=== PATIENT | female | born 1990 | race Caucasian/White ===

== ENCOUNTER 2017-07-01 15:40 | Emergency (ER) | payer BC ==
[2017-07-01] MEDS ORDERED: SODIUM CHLORIDE 0.9% 1,000 ML IV STA (16:26)
[2017-07-01] MEDS ORDERED: METOCLOPRAMIDE 5 MG/ML 2 ML VIAL IVP STA (16:26)
[2017-07-01] MEDS ORDERED: diphenhydrAMINE 50 MG/ML 1 ML VIAL IVP STA (16:26)
--- NOTE | 2017-07-01 17:37 | CT ---
EXAMINATION TYPE: CT brain wo con DATE OF EXAM: 07/01/2017 COMPARISON: 05/18/2012 HISTORY: Patient complains of headache, nausea, dizziness, and light sensitivity. CT DLP: 1002 mGycm. Automated Exposure Control for Dose Reduction was Utilized. TECHNIQUE: CT scan of the head is performed without contrast. FINDINGS: Ventricles of normal size. There is no mass effect nor midline shift. There is no sign of i ntracranial hemorrhage. The calvarium is intact. Conclusion Negative CT scan of the brain. No change.
[2017-07-01] MEDS ORDERED: KETOROLAC 30 MG/ML 1 ML VIAL IVP STA (17:52)
--- NOTE | 2017-07-01 18:01 | ED ---
General Adult HPI - General Chief complaint: Headache Stated complaint: migraine Time Seen by Provider: 07/01/17 16:17 Source: patient, RN notes reviewed Mode of arrival: ambulatory Limitations: no limitations - History of Present Illness Initial comments: Patient's 27-year-old female who presents for visual migraines, who presents emergency room today with a chief complaint of a headache that began 4 days ago. She does admit that it feels similar to migraines but she does admit that is different. She states from type pain. She admits to photosensitivity. Admits to symptoms of nausea vomiting persists have vomiting before. She denies any other complaints or symptoms. Patient denies any recent fever, chills , shortness of breath, chest pain, back pain, abdominal pain, nausea or vomiting , numbness or tingling, dysuria or hematuria, constipation or diarrhea, or any other complaints. - Related Data Home Medications Medication Instructions Recorded Confirmed Cetirizine HCl [Zyrtec] 10 mg PO DAILY 07/01/17 07/01/17 Fluticasone Nasal [place] [Flonase 2 spr EA NOSTRIL DAILY 07/01/17 07/01/17 Nasal [place]] Previous Rx's Medication Instructions Recorded Butalb/APAP/Caff 50-325-40Mg 1 tab PO Q4H #15 tablet 07/01/17 [Fioricet 50-325-40] Metoclopramide HCl [Reglan] 10 mg PO Q6HR PRN #5 day 07/01/17 Allergies Allergy/AdvReac Type Severity Reaction Status Date / Time Penicillins Allergy Rash/Hives Verified 07/01/17 16:41 hydromorphone [From Dilaudid] AdvReac Nausea & Verified 07/01/17 16:41 Vomiting propoxyphene [From Darvon] AdvReac Nausea & Verified 07/01/17 16:41 Vomiting Review of Systems ROS Statement: Those systems with pertinent positive or pertinent negative responses have been documented in the HPI. ROS Other: All systems not noted in ROS Statement are negative. Past Medical History Past Medical History: No Reported History History of Any Multi-Drug Resistant Organisms: None Reported Past Surgical History: Adenoidectomy, Tonsillectomy Past Psychological History: No Psychological Hx Reported Smoking Status: Never smoker Past Alcohol Use History: Occasional Past Drug Use History: None Reported General Exam - General Exam Comments Initial Comments: General: The patient is awake and alert, in no distress, and does not appear acutely ill. Eye: Pupils are equal, round and reactive to light, extra-ocular movements are intact. No nystagmus. There is normal conjunctiva bilaterally. No signs of icterus. Ears, nose, mouth and throat: There are moist mucous membranes and no oral lesions. Neck: The neck is supple, there is no tenderness or JVD. Cardiovascular: There is a regular rate and rhythm. No murmur, rub or gallop is appreciated. Respiratory: Lungs are clear to auscultation, respirations are non-labored, breath sounds are equal. No wheezes, stridor, rales, or rhonchi. Musculoskeletal: Normal ROM, no tenderness. Strength 5/5. Sensation intact. Pulses equal bilaterally 2+. Neurological: A&O x 3. CN II-XII intact, There are no obvious motor or sensory deficits. Coordination appears grossly intact. Speech is normal. Skin: Skin is warm and dry and no rashes or lesions are noted. Psychiatric: Cooperative, appropriate mood & affect, normal judgment. Limitations: no limitations Course Vital Signs 07/01/17 07/01/17 15:44 16:55 Temperature 98.0 F Pulse Rate 78 56 L Respiratory 18 20 Rate Blood Pressure 131/66 135/60 O2 Sat by Pulse 99 98 Oximetry Medical Decision Making - Medical Decision Making CT of the brain negative for any acute abnormalities. Patient does admit that these headaches are similar. She states the pain was slightly different. She doesn't photosensitivity with nausea vomiting. CT negative. Patient feeling better after medications given here in the emergency room. She'll be discharged home with a prescription of Fioricet along with. Advised to use his medication follow-up family doctor return here to emergency room if any symptoms increase or worsen. She states her stated and is in agreement. - Lab Data Lab Results 07/01/17 Range/Units 16:40 Urine HCG, Qual Not Detected (Not Detectd) Disposition Clinical Impression: Migraine Disposition: HOME SELF-CARE Condition: Good Instructions: Migraine Headache (ED) Additional Instructions: Please use medication as discussed. Please follow-up with family doctor in the next 2 days of symptoms have not improved. Please return to emergency room if the symptoms increase or worsen or for any other concerns. Prescriptions: Butalb/APAP/Caff 50-325-40Mg [Fioricet 50-325-40] 1 tab PO Q4H #15 tablet Metoclopramide HCl [Reglan] 10 mg PO Q6HR PRN #5 day PRN Reason: Nausea Referrals: Soledad Rodriguez DO [Primary Care Provider] - 1-2 days Time of Disposition: 18:00
[2017-07-01 18:17] VITALS: BP 114/58; PULSE 54; RESP 18; TEMP 98.9
== END 2017-07-01 18:17 | disposition home or self-care (01) ==
LOC: EC 15:40
DX: G43.909 Migraine, unspecified, not intractable, without status migrainosus (principal); Z88.0 Allergy status to penicillin; Z88.5 Allergy status to narcotic agent; Z79.51 Long term (current) use of inhaled steroids; Z79.899 Other long term (current) drug therapy
CPT/HCPCS: 81025; 70450; 99284; 96374; 96375 ×2; 96361; J1200; J2765; J1885